=== PATIENT | male | born 2000 | race Caucasian/White ===

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

== ENCOUNTER 2018-12-31 06:46 | Emergency (ER) | payer BC ==
[2018-12-31 07:00] VITALS: BP 131/75; PULSE 87; RESP 16; TEMP 97.6
--- NOTE | 2018-12-31 07:39 | ED ---
ENT HPI - General Chief complaint: ENT Stated complaint: ENT Time Seen by Provider: 12/31/18 07:18 Source: patient, RN notes reviewed, old records reviewed Mode of arrival: ambulatory Limitations: no limitations - History of Present Illness Initial comments: This is a 18-year-old male the ER for evaluation presents today for evaluation regards to ear pain eye pain and throat pain. Patient feels that he has strep throat. He admits to positive fever. No travel history no known sick contacts. No other significant complaints currently MD complaint: sore throat, ear pain, difficulty swallowing -: days(s) Location: L ear, throat Severity: moderate Severity scale (1-10): 4 Quality: aching Consistency: constant Improves with: none Worsens with: swallowing Context- Ear: recent illness Associated Symptoms: fever, cough, sore throat - Related Data Home Medications Medication Instructions Recorded Confirmed Acetaminophen [Tylenol] 650 mg PO TID PRN 12/31/18 12/31/18 Previous Rx's Medication Instructions Recorded Azithromycin [Zithromax Z-pack] 0 mg PO DIRECTED #1 pack 12/31/18 Ciprofloxacin-Hc Otic Susp [Cipro 3 drops RIGHT EYE BID #1 bottle 12/31/18 Hc Otic Suspension] Allergies Allergy/AdvReac Type Severity Reaction Status Date / Time Penicillins Allergy Rash/Hives Verified 12/31/18 07:44 Review of Systems ROS Statement: Those systems with pertinent positive or pertinent negative responses have been documented in the HPI. ROS Other: All systems not noted in ROS Statement are negative. Past Medical History Past Medical History: No Reported History History of Any Multi-Drug Resistant Organisms: None Reported Past Surgical History: No Surgical Hx Reported Past Psychological History: No Psychological Hx Reported Smoking Status: Never smoker Past Alcohol Use History: Occasional Past Drug Use History: None Reported General Exam Limitations: no limitations General appearance: alert, in no apparent distress Head exam: Present: atraumatic, normocephalic, normal inspection Eye exam: Present: normal appearance, PERRL, EOMI, conjunctival injection (Left eye). Absent: scleral icterus, periorbital swelling ENT exam: Present: normal exam, normal oropharynx (Oropharynx edematous is erythematous with exudate), mucous membranes moist, TM's normal bilaterally (left erythematous) Neck exam: Present: normal inspection. Absent: tenderness, meningismus, lymphadenopathy Respiratory exam: Present: normal lung sounds bilaterally. Absent: respiratory distress, wheezes, rales, rhonchi, stridor Cardiovascular Exam: Present: regular rate, normal rhythm, normal heart sounds. Absent: systolic murmur, diastolic murmur, rubs, gallop, clicks GI/Abdominal exam: Present: soft, normal bowel sounds. Absent: distended, tenderness, guarding, rebound, rigid Extremities exam: Present: normal inspection, full ROM, normal capillary refill. Absent: tenderness, pedal edema, joint swelling, calf tenderness Back exam: Present: normal inspection Neurological exam: Present: alert, oriented X3, CN II-XII intact Psychiatric exam: Present: normal affect, normal mood Skin exam: Present: warm, dry, intact, normal color. Absent: rash Course Vital Signs 12/31/18 06:58 Temperature 97.6 F Pulse Rate 87 Respiratory 16 Rate Blood Pressure 131/75 O2 Sat by Pulse 99 Oximetry Medical Decision Making - Medical Decision Making 18-year-old male the ER for evaluation of multiple infections strep throat eye infection and ear infection. Patient replace on antibiotics and can be discharged home Disposition Clinical Impression: Streptococcal sore throat, Right otitis media, Conjunctivitis, right eye Disposition: HOME SELF-CARE Condition: Good Instructions (If sedation given, give patient instructions): Otitis Externa (ED), Strep Throat (ED), Conjunctivitis (ED) Prescriptions: Ciprofloxacin-Hc Otic Susp [Cipro Hc Otic Suspension] 3 drops RIGHT EYE BID #1 bottle Azithromycin [Zithromax Z-pack] 0 mg PO DIRECTED #1 pack Is patient prescribed a controlled substance at d/c from ED?: No Referrals: None,Stated [Primary Care Provider] - 1-2 days
== END 2018-12-31 07:59 | disposition home or self-care (01) ==
LOC: EC 06:46
DX: J02.0 Streptococcal pharyngitis (principal); H66.91 Otitis media, unspecified, right ear; H10.9 Unspecified conjunctivitis; Z88.0 Allergy status to penicillin
CPT/HCPCS: 99283

== ENCOUNTER 2021-01-21 20:42 | Emergency (ER) | payer BC ==
[2021-01-21 21:06] VITALS: BP 142/77; PULSE 77; RESP 18; TEMP 98
[2021-01-21] MEDS ORDERED: CYCLOBENZAPRINE 10MG STARTER 3 TAB BTL PO STA (21:15)
[2021-01-21] MEDS ORDERED: KETOROLAC 15 MG/ML 1 ML VIAL IM STA (21:15)
--- NOTE | 2021-01-21 21:19 | ED ---
General Adult HPI - General Chief complaint: Extremity Injury, Lower Stated complaint: L leg pain Time Seen by Provider: 01/21/21 21:08 Source: patient Mode of arrival: ambulatory Limitations: no limitations - History of Present Illness Initial comments: 20 year-old male patient presents to the emergency department for evaluation of right buttock pain radiation down the back of his leg to the right foot. States he does have some tingling in his right heel. States that the pain has been present for the last month, possibly from an injury at work. He states that over the last couple of days he has down long road trips and then a lot of walking he thinks this irritated it. He denies any swelling to the leg. States he did try motrin and it did not help. He denies any fever or chills. Denies any saddle anesthesia or loss of bowel or bladder control. Patient denies any headache, neck pain, chest pain, shortness of breath, dizziness, weakness, abdominal pain, nausea, vomiting, or difficulties with bowel movements or urination. - Related Data Home Medications Medication Instructions Recorded Confirmed Acetaminophen [Tylenol] 650 mg PO TID PRN 12/31/18 12/31/18 Previous Rx's Medication Instructions Recorded Azithromycin [Zithromax Z-pack (6 0 mg PO DIRECTED #1 pack 12/31/18 tabs)] Ciprofloxacin-Hc Otic Susp [Cipro 3 drops RIGHT EYE BID #1 bottle 12/31/18 Hc Otic Suspension] Cyclobenzaprine [Flexeril] 10 mg PO TID #15 tab 01/21/21 Naproxen [EC-Naprosyn] 500 mg PO BID PRN #30 tablet. 01/21/21 Allergies Allergy/AdvReac Type Severity Reaction Status Date / Time Penicillins Allergy Rash/Hives Verified 01/21/21 21:03 Review of Systems ROS Statement: Those systems with pertinent positive or pertinent negative responses have been documented in the HPI. ROS Other: All systems not noted in ROS Statement are negative. Past Medical History Past Medical History: No Reported History History of Any Multi-Drug Resistant Organisms: None Reported Past Surgical History: No Surgical Hx Reported Past Psychological History: No Psychological Hx Reported Smoking Status: Never smoker Past Alcohol Use History: Occasional Past Drug Use History: None Reported General Exam Limitations: no limitations General appearance: alert, in no apparent distress, other (Physical well- developed, well-nourished adult male patient in no acute distress. Vital signs upon presentation temperature 98.0F, pulse 77, respirations 18, blood pressure 142/77, pulse ox 99% on room air.) Eye exam: Present: normal appearance, PERRL, EOMI. Absent: scleral icterus, conjunctival injection, periorbital swelling ENT exam: Present: normal exam, normal oropharynx, mucous membranes moist Respiratory exam: Present: normal lung sounds bilaterally. Absent: respiratory distress, wheezes, rales, rhonchi, stridor Cardiovascular Exam: Present: regular rate, normal rhythm, normal heart sounds. Absent: systolic murmur, diastolic murmur, rubs, gallop, clicks GI/Abdominal exam: Present: soft, normal bowel sounds. Absent: distended, tenderness, guarding, rebound, rigid Extremities exam: Present: normal inspection, full ROM, normal capillary refill, other (Pedal and posttibial pulses 2+.). Absent: tenderness, pedal edema, joint swelling, calf tenderness Back exam: Present: normal inspection. Absent: vertebral tenderness Neurological exam: Present: alert, oriented X3, CN II-XII intact Expanded Speech: Present: fluid speech Motor strength exam: RLE: 5, LLE: 5 Psychiatric exam: Present: normal affect, normal mood Skin exam: Present: warm, dry, intact, normal color. Absent: rash Course Vital Signs 01/21/21 21:03 Temperature 98.0 F Pulse Rate 77 Respiratory 18 Rate Blood Pressure 142/77 O2 Sat by Pulse 99 Oximetry Medical Decision Making - Medical Decision Making 20-year-old male patient presents to the emergency department today for evaluation of pain in the right leg. Patient states pain starts in the upper right buttock and radiates down the back of his leg following to his foot. Does report some tingling in his right heel. Physical examination is unremarkable. Skin neurologic and neurovascular status. Good strength is lower extremities. No concerning symptoms for cauda equina. Symptoms are consistent with lumbar radiculopathy. We'll treat with anti-inflammatories and muscle relaxers. He'll be given a starter pack of Tylenol with Codeine. He is educated regarding ice application, gentle range of motion exercises. He is instructed to follow-up with his primary care physician for recheck and to discuss possible referral to physical therapy as he has had the pain for the last month. Return parameters were discussed in detail. He verbalizes understanding and agrees with this plan. My attending is Dr. Mederos. Disposition Clinical Impression: Sciatica Disposition: HOME SELF-CARE Condition: Good Instructions (If sedation given, give patient instructions): Sciatica (ED), Lumbar Radiculopathy (ED) Additional Instructions: Alternate ice and heat to the area. Take medications as directed. Perform gentle stretching exercises. Consider discussing physical therapy referral with your primary care physician. Follow up with primary care physician for recheck in 1-2 days. Return to the emergency department for any new, worsening, or concerning symptoms. Prescriptions: Naproxen [EC-Naprosyn] 500 mg PO BID PRN #30 tablet.dr GRANADO Reason: Pain Cyclobenzaprine [Flexeril] 10 mg PO TID #15 tab Is patient prescribed a controlled substance at d/c from ED?: No Referrals: Milla Perez DO [Primary Care Provider] - 1-2 days Time of Disposition: 21:18
[2021-01-21] MEDS: ACET/COD 300 MG/30 MG STARTER PACK 6 TAB BTL PO STA ×2 (21:42→21:43)
== END 2021-01-21 21:52 | disposition home or self-care (01) ==
LOC: EC 20:42
DX: M54.31 Sciatica, right side (principal)
CPT/HCPCS: 99283; 96372; J1885

== ENCOUNTER 2021-12-29 15:07 | Emergency (ER) | payer BC ==
[2021-12-29 15:24] VITALS: BP 138/73; PULSE 96; RESP 18; TEMP 98.3
--- NOTE | 2021-12-29 15:58 | ED ---
Lower Extremity Injury HPI - General Chief Complaint: Extremity Injury, Lower Stated Complaint: L ankle injury Time Seen by Provider: 12/29/21 15:45 Source: patient, RN notes reviewed Mode of arrival: wheelchair Limitations: no limitations - History of Present Illness Initial Comments: This a 21-year-old male presents emergency Department with chief complaint of left ankle injury. Patient states he is on a trampoline states she was jumping rolled his ankle. Patient states is moderate swelling, mild pain. Patient not taking any prior arrival patient does not last any pain at this time he was offered. Patient denies any paresthesias no other areas of pain including proximal leg, foot. Patient states she's had a prior ankle sprain which is very similar to his current presentation. - Related Data Home Medications Medication Instructions Recorded Confirmed Acetaminophen [Tylenol] 650 mg PO TID PRN 12/31/18 12/31/18 Previous Rx's Medication Instructions Recorded Azithromycin [Zithromax Z-pack (6 0 mg PO DIRECTED #1 pack 12/31/18 tabs)] Ciprofloxacin-Hc Otic Susp [Cipro 3 drops RIGHT EYE BID #1 bottle 12/31/18 Hc Otic Suspension] Cyclobenzaprine [Flexeril] 10 mg PO TID #15 tab 01/21/21 Naproxen [EC-Naprosyn] 500 mg PO BID PRN #30 tablet. 01/21/21 Allergies Allergy/AdvReac Type Severity Reaction Status Date / Time Penicillins Allergy Rash/Hives Verified 12/29/21 15:21 Review of Systems ROS Statement: Those systems with pertinent positive or pertinent negative responses have been documented in the HPI. ROS Other: All systems not noted in ROS Statement are negative. Past Medical History Past Medical History: No Reported History History of Any Multi-Drug Resistant Organisms: None Reported Past Surgical History: No Surgical Hx Reported Past Psychological History: No Psychological Hx Reported Smoking Status: Never smoker Past Alcohol Use History: Occasional Past Drug Use History: None Reported General Exam Limitations: no limitations General appearance: alert, in no apparent distress Head exam: Present: atraumatic, normocephalic, normal inspection Respiratory exam: Present: normal lung sounds bilaterally. Absent: respiratory distress, wheezes, rales, rhonchi, stridor Cardiovascular Exam: Present: regular rate, normal rhythm, normal heart sounds. Absent: systolic murmur, diastolic murmur, rubs, gallop, clicks Extremities exam: Present: other (Left ankle there is moderate swelling, tenderness palpation, no foot tenderness no proximal tib-fib tenderness pedal pulses equal bilaterally) Skin exam: Present: warm, dry, intact, normal color. Absent: rash Course Vital Signs 12/29/21 15:21 Temperature 98.3 F Pulse Rate 96 Respiratory 18 Rate Blood Pressure 138/73 O2 Sat by Pulse 98 Oximetry Medical Decision Making - Medical Decision Making X-rays negative for acute fracture. Patient is left ankle sprain. Patient discharged in stable condition return parameters were discussed. Disposition Clinical Impression: Left ankle sprain Disposition: HOME SELF-CARE Condition: Stable Instructions (If sedation given, give patient instructions): Ankle Sprain (ED) Additional Instructions: Please return to the Emergency Department if symptoms worsen or any other concerns. Is patient prescribed a controlled substance at d/c from ED?: No Referrals: Milla Perez DO [Primary Care Provider] - 1-2 days Time of Disposition: 16:20
--- NOTE | 2021-12-29 16:08 | XR ---
Left ankle. HISTORY: Pain following trauma. COMPARISON: None. TECHNIQUE: 3 views left ankle were obtained. FINDINGS: There is mild soft tissue swelling over both the medial lateral malleolus. There is no fracture, disl ocation or focal intraosseous abnormality. The ankle mortise is intact. IMPRESSION: No fracture or dislocation left ankle. There is mild soft tissue swelling.
== END 2021-12-29 17:12 | disposition home or self-care (01) ==
LOC: EC 15:07
DX: S93.402A Sprain of unspecified ligament of left ankle, initial encounter (principal); Z88.0 Allergy status to penicillin; Y93.44 Activity, trampolining; X50.1XXA Overexertion from prolonged static or awkward postures, initial encounter
CPT/HCPCS: 99283